=== PATIENT | male | born 1955 | race Caucasian/White ===

== ENCOUNTER → 2018-11-27 | Outpatient (CLI) | payer BC ==
--- NOTE | 2018-11-27 16:41 | KCIC ---
3 view radiographs of the left hand to include radiographs of the left fourth finger 11/27/2018 CLINICAL HISTORY: Pain in the left fourth finger. PA, lateral and oblique digital radiographs of the left hand were obtained. PA and lateral digital radiographs of the left fourth finger were obtained. No fracture or dislocation of the left hand is seen. Mild degenerative changes are seen scattered throughout the interphalangeal joints of the left hand. Mild to moderate degenerative changes are seen involving the first MCP joint and first carpal metacarpal joint. IMPRESSION: Degenerative changes are seen as discussed above. No acute osseous abnormality is seen. Electronically signed by: Xavier Esquivel MD (11/27/2018 4:38 PM) [id number]
== END | disposition home or self-care (01) ==
LOC: KCIC 15:47
PROVIDERS: ATTEND Family Medicine
DX: M19.042 Primary osteoarthritis, left hand (principal)
CPT/HCPCS: 73140